=== PATIENT | female | born 1960 | race Caucasian/White ===

== ENCOUNTER 2018-07-07 11:59 | Inpatient (IN) | payer SELFPAY ==
[2018-07-07 12:32] VITALS: BMI 17.6
--- NOTE | 2018-07-07 13:13 | HP ---
CIWA Score Nausea/Vomitin Muscle Tremors: 2 Anxiety: 2 Agitation: 2 Paroxysmal Sweats: 1-Minimal Palms Moist Orientation: 0-Oriented Tacttile Disturbances: 1-Very Mild Itch/Numbness Auditory Disturbances: 1-Very Mild Visual Disturbances: 0-None Headache: 2-Mild CIWA-Ar Total Score: 13 - Admission Criteria [facility] Guidelines: Admission for Medically Managed Detox: Requires at least one of the followin. CIWA greater than 12 2. Seizures within the past 24 hours 3. Delirium tremens within the past 24 hours 4. Hallucinations within the past 24 hours 5. Acute intervention needed for co occurring medical disorder 6. Acute intervention needed for co occurring psychiatric disorder 7. Severe withdrawal that cannot be handled at a lower level of care (continued vomiting, continued diarrhea, abnormal vital signs) requiring intravenous medication and/or fluids 8. Patient presents the following: CIWA greater than 12 Admission Criteria Met: Admission criteria met Admission ROS BHS - HPI Chief Complaint: i need help to stop drinking alcohol Allergies/Adverse Reactions: Allergies Allergy/AdvReac Type Severity Reaction Status Date / Time No Known Allergies Allergy Verified 07/07/18 13:06 History of Present Illness: this 58 years old female with alcohol dependence seeking detox,withdrawal symptom,never been in detox before gerd nicotine dependence need help to stop drinking alcohol anxiety,depression Exam Limitations: No Limitations - Ebola screening Have you traveled outside of the country in the last 21 days: No Have you had contact with anyone from an Ebola affected area: No Have you been sick,other than usual withdrawal symptoms: No - Review of Systems Constitutional: Loss of Appetite, Malaise, Night Sweats, Changes in sleep, Weakness EENT: reports: Nose Congestion Respiratory: reports: No Symptoms reported Cardiac: reports: No Symptoms Reported GI: reports: Nausea, Poor Appetite, Abdominal cramping : reports: No Symptoms Reported Musculoskeletal: reports: Back Pain, Muscle Pain Integumentary: reports: Dryness Neuro: reports: Headache, Tremors Endocrine: reports: No Symptoms Reported Hematology: reports: No Symptoms Reported Psychiatric: reports: No Sypmtoms Reported, Judgement Intact, Mood/Affect Appropiate, Orientated x3, Anxious, Depressed Patient History - Patient Medical History Hx Anemia: No Hx Asthma: No Hx Chronic Obstructive Pulmonary Disease (COPD): No Hx Cancer: No Hx Cardiac Disorders: No Hx Congestive Heart Failure: No Hx Hypertension: No Hx Hypercholesterolemia: No Hx Pacemaker: No HX Cerebrovascular Accident: No Hx Seizures: No Hx Dementia: No Hx Diabetes: No Hx Gastrointestinal Disorders: No Hx Liver Disease: No Hx Genitourinary Disorders: No Hx Sexually Transmitted Disorders: No Hx Renal Disease (ESRD): No Hx Thyroid Disease: No Hx Human Immunodeficiency Virus (HIV): No (never beeen tested before,did not want to be tested) Hx Hepatitis C: No Hx Depression: Yes (anxiety) Hx Suicide Attempt: No Hx Bipolar Disorder: No Hx Schizophrenia: No Other Medical History: no suicidal,no homicidal - Patient Surgical History Past Surgical History: No - PPD History Previous Implant?: Yes Documented Results: Negative w/o proof Implanted On Prior [facility] Admission?: No PPD to be Administered?: Yes - Reproductive History Patient is a Female of Child Bearing Age (11 -55 yrs old): No Patient : No - Smoking Cessation Smoking history: Current every day smoker Have you smoked in the past 12 months: Yes Aproximately how many cigarettes per day: 20 Cigars Per Day: 0 Hx Chewing Tobacco Use: No Initiated information on smoking cessation: Yes 'Breaking Loose' booklet given: 07/07/18 - Substance & Tx. History Hx Alcohol Use: Yes Hx Substance Use: No Substance Use Type: Alcohol Hx Substance Use Treatment: No - Substances Abused Alcohol Route: Oral Frequency: Daily Amount used: 1-2 bottles wine Age of first use: 18 Date of Last Use: 07/05/18 Family Disease History - Family Disease History Family History: Denies Admission Physical Exam BHS - Vital Signs Vital Signs: Vital Signs - 24 hr 07/07/18 12:31 Temperature 97.9 F Pulse Rate 93 H Respiratory 18 Rate Blood Pressure 161/95 - Physical General Appearance: Yes: Moderate Distress, Tremorous, Irritable, Sweating, Anxious HEENTM: Yes: Normal ENT Inspection, FRANCIS, Pharynx Normal Respiratory: Yes: Lungs Clear, Normal Breath Sounds, No Respiratory Distress Neck: Yes: Within Normal Limits, Supple, Trachea in good position Breast: Yes: Breast Exam Deferred Cardiology: Yes: Within Normal Limits, Regular Rhythm, Regular Rate, S1, S2 Abdominal: Yes: Within Normal Limits, Normal Bowel Sounds, Non Tender, Soft Genitourinary: Yes: Within Normal Limits Back: Yes: Muscle Spasm Musculoskeletal: Yes: Back pain, Muscle Pain Extremities: Yes: Within Normal Limits, Normal Range of Motion, Tremors Neurological: Yes: sw[place]ish masseuse II-XII NML intact, Fully Oriented, Alert, Motor Strength 5/5 Integumentary: Yes: Dry Lymphatic: Yes: Within Normal Limits - Diagnostic (1) Alcohol dependence with uncomplicated withdrawal Current Visit: Yes Status: Acute (2) Anxiety and depression Current Visit: Yes Status: Acute (3) Nicotine dependence Current Visit: Yes Status: Acute (4) History of tonsillectomy Current Visit: Yes Status: Acute Cleared for Admission [facility] - Detox or Rehab [facility] Level of Care: Medically Managed Detox Regimen/Protocol: Librium [facility] Breath Alcohol Content Breath Alcohol Content: 0 Urine Pregancy Test - Result Urine Test Results: Negative- NO Line Present Urine Drug Screen - Results Drug Screen Negative: Yes
[2018-07-07] MEDS ORDERED: hydrOXYzine PAMOATE 25 MG CAPSULE (FP) PO PRN (13:21)
[2018-07-07] MEDS ORDERED: MAGNESIUM CITRATE 300 ML BOTTLE PO PRN (13:21)
[2018-07-07] MEDS ORDERED: MENTHOL/PHENOL 1 EACH UD MM PRN (13:21)
[2018-07-07] MEDS ORDERED: P-EPHED 60MG/TRIPROLIDI 2.5MG TABLET PO PRN (13:21)
[2018-07-07] MEDS ORDERED: chlordiazePOXIDE HCL 25 MG CAPSULE PO PRN (13:21)
[2018-07-07] MEDS ORDERED: MAGNESIUM HYDROX 2400MG/30ML ORAL SUSPENSION 30 ML CUP PO PRN (13:21)
[2018-07-07] MEDS ORDERED: guaiFENesin/D-METHORPHAN HB 10 ML UNIT-DOSE CUPS PO PRN (13:21)
[2018-07-07] MEDS ORDERED: ACETAMINOPHEN 325 MG TABLET (FP) PO PRN (13:21)
[2018-07-07] MEDS ORDERED: LOPERAMIDE HCL 2 MG CAPSULE PO PRN (13:21)
[2018-07-07] MEDS ORDERED: MAG HYDROX/AL HYDROX/SIMETH 30 ML UNIT-DOSE CUP PO PRN (13:21)
[2018-07-07] MEDS ORDERED: IBUPROFEN 400 MG TABLET (FP) PO PRN (13:21)
[2018-07-07] MEDS: chlordiazePOXIDE HCL 25 MG CAPSULE PO SCH ×2 (16:59→22:09)
--- NOTE | 2018-07-07 17:04 | EKG ---
Test Reason : Blood Pressure : / mmHG Vent. Rate : 081 BPM Atrial Rate : 081 BPM P-R Int : 000 ms QRS Dur : 068 ms QT Int : 384 ms P-R-T Axes : 067 -50 060 degrees QTc Int : 446 ms SINUS RHYTHM WITH MARKED SINUS ARRHYTHMIA LEFT AXIS DEVIATION NONSPECIFIC ST AND T WAVE ABNORMALITY ABNORMAL ECG Confirmed by MD BRANDEN, HUONG ([id number]) on 07/07/2018 5:03:41 PM Referred By: Confirmed By:HUONG OTERO MD
[2018-07-07 17:36] LABS: URINE APPEARANCE SLCLOUDY; URINE BILIRUBIN NEGATIVE (<2.0 mg/dL); URINE COLOR YELLOW; URINE GLUCOSE (UA) NEGATIVE (NEGATIVE); URINE KETONE 1+ (NEGATIVE); URINE LEUK ESTERASE 2+ (NEGATIVE); URINE NITRITE NEGATIVE (NEGATIVE); URINE PROTEIN NEGATIVE (NEGATIVE); URINE UROBILINOGEN NEGATIVE mg/dL (0.2-1.0)
[2018-07-07] MEDS: NICOTINE POLACRILEX 2 MG GUM BUC PRN (17:40)
[2018-07-07 17:42] LABS: EPI CELLS MODERATE /HPF (FEW); URINE BACTERIA MANY /hpf (NONE SEEN); URINE MUCUS RARE
[2018-07-07] MEDS: THIAMINE HCL 100 MG TABLET (FP) PO SCH (22:09)
[2018-07-08] MEDS: chlordiazePOXIDE HCL 25 MG CAPSULE PO SCH (05:41)
--- NOTE | 2018-07-08 10:08 | PN ---
S CIWA - CIWA Score Nausea/Vomitin-Mild Nausea/No Vomiting Muscle Tremors: 3 Anxiety: 2 Agitation: 2 Paroxysmal Sweats: 1-Minimal Palms Moist Orientation: 0-Oriented Tacttile Disturbances: 0-None Auditory Disturbances: 0-None Visual Disturbances: 0-None Headache: 1-Very Mild CIWA-Ar Total Score: 10 BHS Progress Note (SOAP) Subjective: mild gi distress less tremor sweat feeling better today Objective: 07/08/18 10:08 Vital Signs Temperature 98.1 F 07/08/18 09:19 Pulse Rate 117 H 07/08/18 09:19 Respiratory Rate 20 07/08/18 09:19 Blood Pressure 123/83 07/08/18 09:19 O2 Sat by Pulse Oximetry (%) Laboratory Last Values Urine Color Yellow 07/07/18 16:45 Urine Appearance Slcloudy 07/07/18 16:45 Urine pH 6.0 (5.0-8.0) 07/07/18 16:45 Ur Specific [place] 1.009 (1.010-1.035) L 07/07/18 16:45 Urine Protein Negative (NEGATIVE) 07/07/18 16:45 Urine Glucose (UA) Negative (NEGATIVE) 07/07/18 16:45 Urine Ketones 1+ (NEGATIVE) H 07/07/18 16:45 Urine Blood Negative (NEGATIVE) 07/07/18 16:45 Urine Nitrite Negative (NEGATIVE) 07/07/18 16:45 Urine Bilirubin Negative (<2.0 mg/dL) 07/07/18 16:45 Urine Urobilinogen Negative mg/dL (0.2-1.0) 07/07/18 16:45 Ur Leukocyte Esterase 2+ (NEGATIVE) H 07/07/18 16:45 Urine WBC (Auto) 8 /hpf (3-5) 07/07/18 16:45 Urine RBC (Auto) 1 /hpf (0-3) 07/07/18 16:45 Ur Epithelial Cells Moderate /HPF (FEW) 07/07/18 16:45 Urine Bacteria Many /hpf (NONE SEEN) 07/07/18 16:45 Urine Mucus Rare 07/07/18 16:45 07/08/18 10:08 lab pending Assessment: 07/08/18 10:09 mild withdrawal sx Plan: medically supervised detox
[2018-07-08] MEDS: PRENATAL VITAMINS W/ FOLIC ACID TABLET (FP) PO SCH (10:28)
[2018-07-08] MEDS ORDERED: chlordiazePOXIDE HCL 25 MG CAPSULE PO ONE (11:00)
[2018-07-08 11:02] LABS: ALBUMIN 3.8 g/dl (3.4-5.0); ALK PHOS 179 U/L (45-117); ANION GAP 10 MMOL/L (8-16); BILIRUBIN,TOTAL 0.8 mg/dL (0.2-1); BLOOD UREA NITROGEN 10 mg/dL (7-18); CHLORIDE 96 mmol/L (98-107); CO2 27 mmol/L (21-32); CREATININE 0.7 mg/dL (0.55-1.3); GLUCOSE,RANDOM 167 mg/dL (74-106); POTASSIUM 4.2 mmol/L (3.5-5.1); SGOT/AST 32 U/L (15-37); SGPT/ALT 25 U/L (13-61); SODIUM 132 mmol/L (136-145)
[2018-07-08 13:04] LABS: HEMATOCRIT 39.6 % (32.4-45.2); HEMOGLOBIN 13.1 GM/dL (10.7-15.3); MCHC 33.1 g/dl (32.0-36.0); MEAN CELL VOLUME 108.8 fl (80-96); RBC 3.64 M/mm3 (3.60-5.2); RDW 17.5 % (11.6-15.6)
[2018-07-08] MEDS ORDERED: chlordiazePOXIDE HCL 25 MG CAPSULE PO SCH ×2 (17:00)
[2018-07-08] MEDS ORDERED: chlordiazePOXIDE 5 MG CAPSULE PO SCH (17:03)
[2018-07-08] MEDS: chlordiazePOXIDE 5 MG CAPSULE PO SCH ×2 (17:43→22:05)
[2018-07-08] MEDS: NICOTINE POLACRILEX 2 MG GUM BUC PRN (17:45)
[2018-07-08] MEDS: THIAMINE HCL 100 MG TABLET (FP) PO SCH (22:05)
[2018-07-08] MEDS: MELATONIN 5 MG TABLETS PO PRN (22:06)
[2018-07-09] MEDS: chlordiazePOXIDE 5 MG CAPSULE PO SCH ×2 (05:20→10:38)
[2018-07-09] MEDS: PRENATAL VITAMINS W/ FOLIC ACID TABLET (FP) PO SCH (10:37)
--- NOTE | 2018-07-09 15:46 | PN ---
[facility] CIWA - CIWA Score Nausea/Vomitin-No Nausea/No Vomiting Muscle Tremors: 1-None Visible, but [place] Anxiety: 1-Mildly Anxious Agitation: 1-Slight > Activity Paroxysmal Sweats: 1-Minimal Palms Moist Orientation: 0-Oriented Tacttile Disturbances: 0-None Auditory Disturbances: 0-None Visual Disturbances: 0-None Headache: 1-Very Mild CIWA-Ar Total Score: 5 BHS Progress Note (SOAP) Subjective: mild tremor sweat no gi distress reported feeling better today slept throughout the night Objective: 07/09/18 15:44 Vital Signs Temperature 96.1 F L 07/09/18 13:46 Pulse Rate 98 H 07/09/18 13:46 Respiratory Rate 16 07/09/18 13:46 Blood Pressure 126/73 07/09/18 13:46 O2 Sat by Pulse Oximetry (%) Laboratory Last Values WBC 11.0 K/mm3 (4.0-10.0) H 07/08/18 05:00 RBC 3.64 M/mm3 (3.60-5.2) 07/08/18 05:00 Hgb 13.1 GM/dL (10.7-15.3) 07/08/18 05:00 Hct 39.6 % (32.4-45.2) 07/08/18 05:00 MCV 108.8 fl (80-96) H 07/08/18 05:00 MCH 36.0 pg (25.7-33.7) H 07/08/18 05:00 MCHC 33.1 g/dl (32.0-36.0) 07/08/18 05:00 RDW 17.5 % (11.6-15.6) H 07/08/18 05:00 Plt Count K/MM3 (134-434) 07/08/18 05:00 Platelet Comment Mod plt clumping 07/08/18 05:00 Sodium 132 mmol/L (136-145) L 07/08/18 05:00 Potassium 4.2 mmol/L (3.5-5.1) 07/08/18 05:00 Chloride 96 mmol/L (98-107) L 07/08/18 05:00 Carbon Dioxide 27 mmol/L (21-32) 07/08/18 05:00 Anion Gap 10 MMOL/L (8-16) 07/08/18 05:00 BUN 10 mg/dL (7-18) 07/08/18 05:00 Creatinine 0.7 mg/dL (0.55-1.3) 07/08/18 05:00 Creat Clearance w eGFR > 60 (>60) 07/08/18 05:00 Random Glucose 167 mg/dL (74-106) H 07/08/18 05:00 Calcium 9.0 mg/dL (8.5-10.1) 07/08/18 05:00 Total Bilirubin 0.8 mg/dL (0.2-1) 07/08/18 05:00 AST 32 U/L (15-37) 07/08/18 05:00 ALT 25 U/L (13-61) 07/08/18 05:00 Alkaline Phosphatase 179 U/L (45-117) H 07/08/18 05:00 Total Protein 8.0 g/dl (6.4-8.2) 07/08/18 05:00 Albumin 3.8 g/dl (3.4-5.0) 07/08/18 05:00 Urine Color Yellow 07/07/18 16:45 Urine Appearance Slcloudy 07/07/18 16:45 Urine pH 6.0 (5.0-8.0) 07/07/18 16:45 Ur Specific [place] 1.009 (1.010-1.035) L 07/07/18 16:45 Urine Protein Negative (NEGATIVE) 07/07/18 16:45 Urine Glucose (UA) Negative (NEGATIVE) 07/07/18 16:45 Urine Ketones 1+ (NEGATIVE) H 07/07/18 16:45 Urine Blood Negative (NEGATIVE) 07/07/18 16:45 Urine Nitrite Negative (NEGATIVE) 07/07/18 16:45 Urine Bilirubin Negative (<2.0 mg/dL) 07/07/18 16:45 Urine Urobilinogen Negative mg/dL (0.2-1.0) 07/07/18 16:45 Ur Leukocyte Esterase 2+ (NEGATIVE) H 07/07/18 16:45 Urine WBC (Auto) 8 /hpf (3-5) 07/07/18 16:45 Urine RBC (Auto) 1 /hpf (0-3) 07/07/18 16:45 Ur Epithelial Cells Moderate /HPF (FEW) 07/07/18 16:45 Urine Bacteria Many /hpf (NONE SEEN) 07/07/18 16:45 Urine Mucus Rare 07/07/18 16:45 RPR Titer Nonreactive (NONREACTIVE) 07/08/18 05:00 lab noted Assessment: 07/09/18 15:46 withdrawal sx Plan: continue detox
[2018-07-09] MEDS ORDERED: chlordiazePOXIDE 5 MG CAPSULE PO SCH (17:00)
[2018-07-09] MEDS: chlordiazePOXIDE HCL 10 MG CAPSULE PO SCH ×2 (17:49→22:05)
[2018-07-09] MEDS: NICOTINE POLACRILEX 2 MG GUM BUC PRN (17:51)
[2018-07-09] MEDS: THIAMINE HCL 100 MG TABLET (FP) PO SCH (22:05)
[2018-07-09] MEDS: MELATONIN 5 MG TABLETS PO PRN (22:06)
[2018-07-10] MEDS: chlordiazePOXIDE HCL 10 MG CAPSULE PO SCH (05:32)
[2018-07-10 06:29] VITALS: BP 135/88; PULSE 78; TEMP 97.8
--- NOTE | 2018-07-10 12:11 | DS ---
[facility] Detox Discharge Summary Admission Date: 07/07/18 Discharge Date: 07/10/18 - History Present History: Alcohol Dependence - Physical Exam Results Vital Signs: Vital Signs Temperature 97.8 F 07/10/18 06:29 Pulse Rate 78 07/10/18 06:29 Respiratory Rate 18 07/10/18 06:29 Blood Pressure 135/88 07/10/18 06:29 O2 Sat by Pulse Oximetry (%) Pertinent Admission Physical Exam Findings: PATIENT TOLERATED DETOX REGIMEN WITHOUT ADVERSE EVENT. PATIENT D/C MEDICALLY STABLE, DENIES SI/HI. ENCOURAGED TO ATTEND GROUP MEETINGS TO PREVENT RELAPSE. D/ C INSTRUCTIONS GIVEN TO PATIENT BY STAFF. - Treatment Hospital Course: Detox Protocol Followed, Detoxed Safely, Responded well, Discharged Condition Good - Medication Discharge Medications: Ambulatory Orders NK [No Known Home Medication] 07/07/18 - AMA Did Patient Leave Against Medical Advice: No
[2018-07-10] MEDS ORDERED: chlordiazePOXIDE HCL 10 MG CAPSULE PO SCH (17:00)
[2018-07-10] MEDS ORDERED: chlordiazePOXIDE 5 MG CAPSULE PO SCH (17:00)
== END 2018-07-10 09:05 | disposition home or self-care (01) | DRG 775 ==
LOC: YASAS 11:59 → Y3N 13:26
PROC: HZ2ZZZZ Detoxification Services for Substance Abuse Treatment (ICD-10-PCS; principal; 2018-07-07)
DX: F10.230 Alcohol dependence with withdrawal, uncomplicated (principal); F17.200 Nicotine dependence, unspecified, uncomplicated; F41.8 Other specified anxiety disorders; F32.9 Major depressive disorder, single episode, unspecified; Z90.89 Acquired absence of other organs
CPT/HCPCS: 36415; 80053; 81003; 81015; 85027; 86593; 93005; 93010